=== PATIENT | female | born 1995 | race Two or more races ===

== ENCOUNTER 2024-11-30 20:16 | Emergency (ER) | payer OTHER ==
[~2024-11-30] VITALS: Ht 167.6 cm; Wt 63.5 kg
[2024-11-30] MEDS ORDERED: KETOROLAC TROMETHAMINE 60 MG VIAL IM ONE (21:00)
[2024-11-30] MEDS ORDERED: NORFLEX100MG PO (21:22)
== END 2024-11-30 21:43 | disposition home or self-care (01) ==
LOC: ER 20:38
DX: M94.0 Chondrocostal junction syndrome [Tietze] (principal)